=== PATIENT | female | born 1985 | race Caucasian/White ===

== ENCOUNTER 2018-09-08 13:06 | Emergency (ER) | payer OTHER, SELFPAY ==
[2018-09-08 13:21] VITALS: BP 124/97; PULSE 102; RESP 20; TEMP 36.6; O2SAT 100
--- NOTE | 2018-09-08 13:21 | ED.LOWEXIN ---
HPI - Extremity Injury (Lower) <JEET Fernando - Last Filed: 09/08/18 21:20> General Chief Complaint: Extremity Problem,Nontraumatic Stated Complaint: LT FOOT IS PURPLE Time Seen by Provider: 09/08/18 13:08 Source: patient Mode of arrival: ambulatory Limitations: no limitations History of Present Illness HPI Narrative: 33-year-old female with history of asthma is an everyday smoker here for complaint of having periodic episodes of purple to her left great toe. In January of this year she underwent procedure to her left lower extremity for superficial peroneal neuroma excision to relieve postoperative nerve pain from prior peroneal tendon repair. She reports she is at had any complications from the surgery. She presents with pictures of her toe being a purple. She does has some a sensation deficits to the left great toe after the surgery. She denies any trauma to the area. She denies any increased pain. She denies any other concerns or complaints at this time. She is ambulatory into the emergency room. Related Data Home Medications Medication Instructions Recorded Confirmed ibuprofen 600 mg PO Q6HP PRN #0 01/17/17 09/08/18 albuterol sulfate [ProAir HFA] 1 dose INHALATION PRN PRN 09/08/18 09/08/18 cyclobenzaprine 10 mg PO TID PRN 09/08/18 09/08/18 diclofenac sodium 1 applic TOPICAL DIRECTED 09/08/18 09/08/18 dicyclomine 20 mg PO QID PRN 09/08/18 09/08/18 gabapentin 600 mg PO QPM PRN 09/08/18 09/08/18 meloxicam 7.5 mg PO DAILY 09/08/18 09/08/18 norgestrel-ethinyl estradiol 1 tab PO DAILY 09/08/18 09/08/18 [Brendan (28)] omeprazole 20 mg PO BID 09/08/18 09/08/18 ondansetron 8 mg TRANSLINGUAL Q8H PRN 09/08/18 09/08/18 sucralfate 1 g PO QID 09/08/18 09/08/18 trazodone 50 mg PO QPM 09/08/18 09/08/18 Previous Rx's Medication Instructions Recorded pregabalin [Lyrica] 75 mg PO BID #60 cap 01/10/18 Allergies Allergy/AdvReac Type Severity Reaction Status Date / Time No Known Allergies Allergy Uncoded 12/21/17 13:08 Review of Systems <JEET Fernando - Last Filed: 09/08/18 21:20> Constitutional Denies chills, Denies fever(s), Denies lethargy and Denies weakness Eyes Denies change in vision, Denies eye discharge, Denies irritation and Denies loss of vision ENT Ears, Nose, Mouth, and Throat: Denies change in voice, Denies neck pain and Denies sore throat Cardiovascular Denies chest pain, Denies irregular heart rhythm, Denies lightheadedness, Denies palpitations, Denies dyspnea, Denies dyspnea on exertion and Denies orthopnea Respiratory Denies cough, Denies dyspnea, Denies dyspnea on exertion and Denies wheezing Gastrointestinal Gastrointestinal: Denies abdominal pain, Denies change in bowel habits, Denies diarrhea, Denies nausea and Denies vomiting Genitourinary Denies hematuria, Denies flank pain, Denies urinary incontinence and Denies urinary urgency Musculoskeletal Denies neck pain Comments: Left great toe intermittent purple color Integumentary/Breasts Denies pruritus, Denies erythema, Denies rash and Denies wounds Neurologic Denies confusion, Denies loss of vision and Denies weakness Psychiatric Denies anxiety, Denies confusion, Denies depression, Denies homicidal ideation and Denies suicidal ideation Endocrine Denies palpitations Hematologic/Lymphatic Denies easy bruising Allergic/Immunologic Denies wheezing Exam <JEET Fernando - Last Filed: 09/08/18 21:20> Initial Vital Signs Initial Vital Signs: Vital Signs Temperature 97.8 F 09/08/18 13:21 Pulse Rate 102 H 09/08/18 13:21 Respiratory Rate 20 09/08/18 13:21 Blood Pressure 124/97 H 09/08/18 13:21 Pulse Oximetry 100 09/08/18 13:21 Const General: cooperative and well developed Nutritional Appearance: well nourished Orientation: alert, awake, oriented x3 and not confused HENMT Mouth: oral mucosae normal and moist mucous membranes Eyes Conjunctivae: conjunctivae normal Sclera: sclerae normal Pupils: PERRL EOM: EOM intact bilaterally Resp Effort & Inspection: normal respiratory effort, able to speak in complete sentences, no respiratory distress and no use of accessory muscles Auscultation: clear to auscultation bilaterally, no rales, no rhonchi and no wheezes Cardio Rate: regular rate Rhythm: regular rhythm Heart Sounds: no click, no gallops, no murmurs and no rubs Pulses: normal peripheral pulses Skin General: no rashes or lesions noted, No jaundice and No petechiae Neuro General: alert, oriented x3, gait normal and no focal motor deficits Speech: speech normal Extrem Other: Left great toe with no swelling no signs of trauma. Left great toe pink in color with cap refill less than 2 sec. No signs of infection. Distal sensation is intact. There is some numbness to the medial aspect of the left great toe not new finding as this has been like this since her recent surgery. Positive range of motion. Dorsal pedis pulse intact. <Sherin Wilcox DO - Last Filed: 09/11/18 07:28> Initial Vital Signs Initial Vital Signs: Vital Signs Temperature 97.8 F 09/08/18 13:21 Pulse Rate 102 H 09/08/18 13:21 Respiratory Rate 20 09/08/18 13:21 Blood Pressure 124/97 H 09/08/18 13:21 Pulse Oximetry 100 09/08/18 13:21 Course <JEET Fernando - Last Filed: 09/08/18 21:20> Vital Signs - 8 hr 09/08/18 13:21 Temperature 97.8 F Pulse Rate 102 H Respiratory Rate 20 Blood Pressure 124/97 H Pulse Oximetry 100 <Sherin Wilcox DO - Last Filed: 09/11/18 07:28> Vital Signs - 8 hr 09/08/18 13:21 Temperature 97.8 F Pulse Rate 102 H Respiratory Rate 20 Blood Pressure 124/97 H Pulse Oximetry 100 MDM - Extremity Injury (Lower) <JEET Fernando - Last Filed: 09/08/18 21:20> [facility] Narrative Medical decision making narrative: No signs of discoloration or trauma or infection to the left great toe. Distal pulses are intact. Cap refill is intact. Will have patient try warming toe if continued symptoms. Will have her follow up with Orthopedics for further evaluation of continued problems. Follow up with primary care provider. Return emergency room for worsening symptoms. Discharge Plan Departure Patient Disposition: Home Clinical Impression: Discoloration of skin of toe Discharge Date/Time: 09/08/18 14:15 Interventions: ED Discharge Assessment Last Done: 09/08/18 14:16 Instructions: DI for Peripheral Neuropathy Activity Restrictions/Additional Instructions: Exam today was unremarkable showing a good circulation to the toes. Use warmth to the left great toe if discoloration happens to see if it helps symptoms. Follow up with Orthopedics for re-evaluation. If any worsening symptoms return to the emergency room. Follow up with primary care provider. Prescriptions: No Action ibuprofen 600 MG tablet 600 mg PO Q6HP PRN (Reason: Pain) Qty: 0 RF: 0 cyclobenzaprine 10 mg tablet 10 mg PO TID PRN (Reason: Spasms) RF: 0 norgestrel-ethinyl estradiol [Cryselle (28)] 0.3-30 mg-mcg tablet 1 tab PO DAILY RF: 0 trazodone 50 mg tablet 50 mg PO QPM RF: 0 sucralfate 1 gram tablet 1 g PO QID RF: 0 ondansetron 8 mg tablet,disintegrating 8 mg Translingual Q8H PRN (Reason: Nausea And Vomiting) RF: 0 meloxicam 7.5 mg tablet 7.5 mg PO DAILY RF: 0 dicyclomine 20 mg tablet 20 mg PO QID PRN (Reason: Spasms) RF: 0 gabapentin 300 mg capsule 600 mg PO QPM PRN (Reason: nerve pain) RF: 0 omeprazole 20 mg capsule,delayed release(DR/EC) 20 mg PO BID RF: 0 albuterol sulfate [ProAir HFA] 90 mcg/actuation HFA aerosol inhaler 1 dose Inhalation PRN PRN (Reason: Shortness Of Breath) RF: 0 diclofenac sodium 1 % gel 1 applic Topical DIRECTED RF: 0 pregabalin [Lyrica] 75 mg capsule 75 mg PO BID Qty: 60 RF: 1 Referrals: Norma Spencer MD [Physician] - Vira Laurent FNP-TONIO [Primary Care Provider] - <Sherin Wilcox DO - Last Filed: 09/11/18 07:28> [facility] ED Attending Selenaature Attestation: I was immediately available in the department for consultation. This documentation has been reviewed and I agree with assessment and plan. Supervised by Sherin Wilcox DO
--- NOTE | 2018-09-08 13:52 | PC.NURSE ---
Pt takes OCP for birthcontrol and smokes. Denies a prolonged travel recently.
== END 2018-09-08 14:15 | disposition home or self-care (01) ==
PROVIDERS: Emergency Provider Nurse Practitioner Family; PCP Nurse Practitioner Family
DX: L81.9 Disorder of pigmentation, unspecified (principal)
CPT/HCPCS: 99282

== ENCOUNTER → 2018-10-09 13:49 | Outpatient (CLI) | payer OTHER, SELFPAY ==
--- NOTE | 2018-10-09 | DI.US.S_ITS ---
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 COMPARISON: None. FINDINGS: Right lower extremity: Common femoral artery: 104 cm/sec, with triphasic flow. Deep femoral artery: 68 cm/sec, with triphasic flow. Proximal superficial femoral artery: 106 cm/sec, with triphasic flow. Mid superficial femoral artery: 82 cm/sec, with triphasic flow. Distal superficial femoral artery: 78 cm/sec, with triphasic flow. Popliteal artery: 47 cm/sec, with triphasic flow. Posterior tibial artery: 45 cm/sec, with triphasic flow. Anterior tibial artery/dorsalis pedis: 49 cm/sec, with triphasic flow. Smith-scale imaging description: No hemodynamically significant stenosis of the right lower extremity arteries. Left lower extremity: Common femoral artery: 138 cm/sec, with triphasic flow. Deep femoral artery: 54 cm/sec, with triphasic flow. Proximal superficial femoral artery: 87 cm/sec, with triphasic flow. Mid superficial femoral artery: 77 cm/sec, with triphasic flow. Distal superficial femoral artery: 83 cm/sec, with triphasic flow. Popliteal artery: 59 cm/sec, with triphasic flow. Posterior tibial artery: 43 cm/sec, with biphasic flow. Anterior tibial artery/dorsalis pedis: 58 cm/sec, with phasic flow. Smith-scale imaging description: No hemodynamically significant stenosis of the left lower extremity arteries. IMPRESSION: No hemodynamically significant stenosis of the bilateral lower extremity arteries. Dictated by: Yun York M.D. on 10/09/2018 at 15:57 Approved by: Yun York M.D. on 10/09/2018 at 16:01
== END ==
PROVIDERS: PCP Nurse Practitioner Family; Visit Provider Orthopaedic Surgery Foot and Ankle Surgery
DX: Q27.9 Congenital malformation of peripheral vascular system, unspecified (principal)
CPT/HCPCS: 93925

== ENCOUNTER 2019-02-20 13:07 | Emergency (ER) | payer OTHER, SELFPAY ==
[2019-02-20 13:08] VITALS: BP 148/103; PULSE 89; RESP 14; TEMP 36.7; O2SAT 100
--- NOTE | 2019-02-20 13:18 | DI.RAD.S_ITS ---
PROCEDURE: XR HIP W PEL IF DONE LT 2V INDICATIONS: pain sp glf TECHNIQUE: AP pelvis with lateral view(s) of the left hip(s). COMPARISON: None. FINDINGS: Bones: No fractures or dislocations. Pelvic ring appears intact. No suspicious bony lesions. Soft tissues: The visualized bowel gas pattern is normal. No suspicious soft tissue calcifications. IMPRESSION: Normal examination. Dictated by: Caleb Tamayo M.D. on 02/20/2019 at 13:47 Approved by: Caleb Tamayo M.D. on 02/20/2019 at 13:47
--- NOTE | 2019-02-20 13:18 | DI.RAD.S_ITS ---
PROCEDURE: XR SHOULDER LT MIN 2V INDICATIONS: pain sp glf TECHNIQUE: 3 views of the shoulder were acquired. COMPARISON: None. FINDINGS: Bones: No fractures or dislocations. No suspicious bony lesions. Visualized ribs appear intact. Soft tissues: No suspicious soft tissue calcifications. IMPRESSION: No fracture or dislocation. Dictated by: Ree Jain M.D. on 02/20/2019 at 13:51 Approved by: Ree Jain M.D. on 02/20/2019 at 13:51
--- NOTE | 2019-02-20 13:18 | DI.RAD.S_ITS ---
PROCEDURE: XR WRIST LT MIN 3V INDICATIONS: pain sp glf TECHNIQUE: 4 views of the wrist were acquired. COMPARISON: None. FINDINGS: Bones: No fractures or dislocations. No suspicious bony lesions. Scaphoid view: No trauma found. Soft tissues: No suspicious soft tissue calcifications. IMPRESSION: No trauma found. Dictated by: Caleb Tamayo M.D. on 02/20/2019 at 13:46 Approved by: Caleb Tamayo M.D. on 02/20/2019 at 13:47
--- NOTE | 2019-02-20 13:24 | ED_ITS ---
HPI - Fall <Sherin Mcintosh CARPET FINISHING SUPERVISOR-BC - Last Filed: 02/20/19 14:41> General Chief Complaint: Fall Stated Complaint: left shoulder/hip/knee/wrist injury today Time Seen by Provider: 02/20/19 13:10 Source: patient and family Mode of arrival: ambulatory Limitations: no limitations History of Present Illness HPI Narrative: The patient is a 34-year-old female with history of ankle surgery who is a current smoker who presents with a chief complaint of left wrist, left shoulder and left hip pain after a ground level fall this morning. She states she slipped in the shower. She is insistent that this is a mechanical fall. She did not hit her head and denies any neck or back pain. She denies any numbness or tingling. She complains of decreased range of motion of her left shoulder and wrist. She states that her left hip hurts when she walks. She states she landed on her left hip. Related Data Home Medications Medication Instructions Recorded Confirmed ibuprofen 600 mg PO Q6HP PRN #0 01/17/17 09/08/18 albuterol sulfate [ProAir HFA] 1 dose INHALATION PRN PRN 09/08/18 09/08/18 diclofenac sodium 1 applic TOPICAL DIRECTED 09/08/18 09/08/18 dicyclomine 20 mg PO QID PRN 09/08/18 09/08/18 gabapentin 600 mg PO QPM PRN 09/08/18 09/08/18 norgestrel-ethinyl estradiol 1 tab PO DAILY 09/08/18 09/08/18 [Brendan (28)] omeprazole 20 mg PO BID 09/08/18 09/08/18 ondansetron 8 mg TRANSLINGUAL Q8H PRN 09/08/18 09/08/18 sucralfate 1 g PO QID 09/08/18 09/08/18 trazodone 50 mg PO QPM 09/08/18 02/20/19 bupropion HCl 100 mg PO BID 02/20/19 meloxicam 15 mg PO DAILY 02/20/19 02/20/19 nifedipine 30 mg PO BID 02/20/19 02/20/19 Previous Rx's Medication Instructions Recorded pregabalin [Lyrica] 75 mg PO BID #60 cap 05/01/18 cyclobenzaprine 10 mg PO TID PRN #30 tab 02/20/19 Allergies Allergy/AdvReac Type Severity Reaction Status Date / Time No Known Drug Allergies Allergy Verified 02/20/19 13:16 Review of Systems <ROMEO Palencia - Last Filed: 02/20/19 14:41> Review of Systems GENERAL: Denies chills, fatigue, malaise, fever, sweats. HEENT: Denies sinus pain, ear pain, sore throat, difficulty swallowing, dizziness. RESPIRATORY: Denies dyspnea, cough, wheezing, hemoptysis, sputum. CARDIOVASCULAR: Denies chest pain, palpitations, orthopnea, edema, GASTROINTESTINAL: Denies nausea, vomiting, abdominal pain, diarrhea, c onstipation, melena. : Denies dysuria, frequency, incontinence, hematuria, urinary retention. MUSCULOSKELETAL: See HPI SKIN: See HPI NEUROLOGIC: Denies weakness, headache, numbness, change in speech, confusion, seizures, incoordination. PSYCHIATRIC: No concerning psychosocial issues. 12 point review of systems is negative except for those stated above Exam <ROMEO Palencia - Last Filed: 02/20/19 14:41> Narrative Exam Narrative: GENERAL: This is a well-nourished, well-developed patient, appears uncomfortable HEAD: Atraumatic. Normocephalic. No temporal or scalp tenderness. EYES: Pupils equal round and reactive. Extraocular motions intact. No scleral icterus. No injection or drainage. ENT: Nose without bleeding, purulent drainage or septal hematoma. Throat without erythema, tonsillar hypertrophy or exudate. Uvula midline. Airway patent. NECK: Trachea midline. No JVD or lymphadenopathy. Supple, nontender, no meningeal signs. CARDIOVASCULAR: Regular rate and rhythm without murmurs, gallops, or rubs. RESPIRATORY: Clear to auscultation. Breath sounds equal bilaterally. No wheezes, rales, or rhonchi. GASTROINTESTINAL: Abdomen soft, non-tender, nondistended. No hepato- splenomegaly, or palpable masses. No guarding. EXTREMITIES: General pain to palpation left wrist with no snuffbox tenderness. Able to flex and extend left wrist. Able to do thumbs up, thumbs down, make an okay sign pronate and supinate left wrist without incident. General pain to palpation left shoulder. Able to extend and flex the shoulder to 90?. Negative empty can test. Pain to palpation left hip. No instability palpated left hip. General pain to palpation left knee. Able to flex and extend left knee. BACK: Nontender without deformity or crepitance. No flank tenderness. No pain to C-spine or spinal palpation. NEURO: AOx3. Stable gait. SKIN: No rash or erythema. No erythema or ecchymosis noted on left hip, left shoulder or left wrist. Initial Vital Signs Initial Vital Signs: Vital Signs Temperature 98.1 F 02/20/19 13:08 Pulse Rate 89 02/20/19 13:08 Respiratory Rate 14 02/20/19 13:08 Blood Pressure 148/103 H 02/20/19 13:08 Pulse Oximetry 100 02/20/19 13:08 <Bryant Bailey DO - Last Filed: 02/20/19 19:29> Initial Vital Signs Initial Vital Signs: Vital Signs Temperature 98.1 F 02/20/19 13:08 Pulse Rate 89 02/20/19 13:08 Respiratory Rate 14 02/20/19 13:08 Blood Pressure 148/103 H 02/20/19 13:08 Pulse Oximetry 100 02/20/19 13:08 PFSH <HARSH Palencia - Last Filed: 02/20/19 14:41> Medical History Asthma (Acute) Hip bursitis, left (Acute) Left hip pain (Acute) Nerve damage (Acute) Neuropathic pain (Acute) Numbness (Acute) Smoker (Acute) Surgical History H/O arthroscopy of shoulder (Acute) History of incision and drainage (Acute) S/P tendon repair (Acute) Social History household members: spouse Smoking Status: Current every day smoker alcohol intake: current Social History household members: spouse Smoking Status: Current every day smoker alcohol intake: current Course <HARSH Palencia - Last Filed: 02/20/19 14:41> Orders Ordered: ED Orders 02/20/19 13:18 XR hip w pel if done LT 2V Stat XR shoulder LT min 2V Stat XR wrist LT min 3V Stat Discontinued Medications Cyclobenzaprine HCl (Flexeril) 10 mg PO NOW ONE Stop: 02/20/19 14:04 Last Admin: 02/20/19 14:14 Dose: 10 mg Vital Signs - 8 hr 02/20/19 13:08 02/20/19 14:46 Temperature 98.1 F Pulse Rate 89 75 Respiratory Rate 14 20 Blood Pressure 148/103 H 130/91 H Pulse Oximetry 100 98 <Bryant Bailey DO - Last Filed: 02/20/19 19:29> Orders Ordered: ED Orders 02/20/19 13:18 XR hip w pel if done LT 2V Stat XR shoulder LT min 2V Stat XR wrist LT min 3V Stat Discontinued Medications Cyclobenzaprine HCl (Flexeril) 10 mg PO NOW ONE Stop: 02/20/19 14:04 Last Admin: 02/20/19 14:14 Dose: 10 mg Vital Signs - 8 hr 02/20/19 13:08 02/20/19 14:46 Temperature 98.1 F Pulse Rate 89 75 Respiratory Rate 14 20 Blood Pressure 148/103 H 130/91 H Pulse Oximetry 100 98 MDM - Fall <HARSH Palencia - Last Filed: 02/20/19 14:41> Lab Data Point of Care Testing Test Results Negative Urine Dip Bedside Urine Glucose Negative Bedside Urine Bilirubin - Negative Bedside Urine Ketone - Negative Urine Specific [place] 1.025 Bedside Urine Occult Blood - Negative Bedside Urine pH 6.0 Bedside Urine Protein - Negative Bedside Urine Urobilinogen - Negative Bedside Urine Nitrite - Negative Bedside Urine Leukocytes - Negative Esterase Imaging Data Hip x-ray: Radiologist's impression: Connor Vieyraangelina Paul 34 F [address] [address] XRay Report Signed Patient: Maribell Vieyra [facility]#: [id number] : 1985Acct:[id number] Age/Sex: 34 / FDate of Service: 02/20/19 Loc: ED Accession Number: [id number] Procedure: XR hip w pel if done LT 2V Ordering Provider: Dayna,Sherin [employer]ISHING SUPERVISOR-BC PROCEDURE: XR HIP W PEL IF DONE LT 2V INDICATIONS: pain sp glf TECHNIQUE: AP pelvis with lateral view(s) of the left hip(s). COMPARISON: None. FINDINGS: Bones: No fractures or dislocations. Pelvic ring appears intact. No suspicious bony lesions. Soft tissues: The visualized bowel gas pattern is normal. No suspicious soft tissue calcifications. IMPRESSION: Normal examination. Dictated by: Caleb Tamayo M.D. on 02/20/2019 at 13:47 Approved by: Caleb Tamayo M.D. on 02/20/2019 at 13:47 Left shoulder x-ray: Radiologist's impression: Maribell Vieyra 34 F [address] [address] XRay Report Signed Patient: Maribell Vieyra [facility]R#: [id number] : 1985Acct:[id number] Age/Sex: 34 / FDate of Service: 02/20/19 Loc: ED Accession Number: [id number] Procedure: XR shoulder LT min 2V Ordering Provider: Sherin Mcintosh-BC PROCEDURE: XR SHOULDER LT MIN 2V INDICATIONS: pain sp glf TECHNIQUE: 3 views of the shoulder were acquired. COMPARISON: None. FINDINGS: Bones: No fractures or dislocations. No suspicious bony lesions. Visualized ribs appear intact. Soft tissues: No suspicious soft tissue calcifications. IMPRESSION: No fracture or dislocation. Dictated by: Ree Jain M.D. on 02/20/2019 at 13:51 Approved by: Ree Jain M.D. on 02/20/2019 at 13:51 Left wrist xray: Radiologist's impression: [address] [address] XRay Report Signed Patient: Maribell Vieyra [facility]#: [id number] : 1985Acct:[id number] Age/Sex: 34 / FDate of Service: 02/20/19 Loc: ED Accession Number: [id number] Procedure: XR wrist LT min 3V Ordering Provider: Sherin Mcintosh-TONIO PROCEDURE: XR WRIST LT MIN 3V INDICATIONS: pain sp glf TECHNIQUE: 4 views of the wrist were acquired. COMPARISON: None. FINDINGS: Bones: No fractures or dislocations. No suspicious bony lesions. Scaphoid view: No trauma found. Soft tissues: No suspicious soft tissue calcifications. IMPRESSION: No trauma found. Dictated by: Caleb Tamayo M.D. on 02/20/2019 at 13:46 Approved by: Caleb Tamayo M.D. on 02/20/2019 at 13:47 [facility] Narrative Medical decision making narrative: The patient is a 34-year-old female who presents with musculoskeletal pain after a ground level fall. She had negative x-rays for her hip, shoulder and wrist. She stated that the pain in her left knee was not bad enough to imaging today when she plans on playing up with her primary care provider in way. I discussed at length coming back to the emergency department for any acute concerns such as confusion, incontinence of bowel or bladder, saddle anesthesia. Encouraged follow-up with primary care provider. I did give her prescription of Flexeril for muscle spasm pain. No questions or concerns upon discharge. <Bryant Bailey DO - Last Filed: 02/20/19 19:29> Lab Data Point of Care Testing Test Results Negative Urine Dip Bedside Urine Glucose Negative Bedside Urine Bilirubin - Negative Bedside Urine Ketone - Negative Urine Specific [place] 1.025 Bedside Urine Occult Blood - Negative Bedside Urine pH 6.0 Bedside Urine Protein - Negative Bedside Urine Urobilinogen - Negative Bedside Urine Nitrite - Negative Bedside Urine Leukocytes - Negative Esterase Discharge Plan Departure Patient Disposition: Home Clinical Impression: Fall from ground level Acute shoulder pain Qualifiers: Laterality: left Qualified Code(s): M25.512 - Pain in left shoulder Acute wrist pain Qualifiers: Laterality: left Qualified Code(s): M25.532 - Pain in left wrist Acute hip pain Qualifiers: Laterality: left Qualified Code(s): M25.552 - Pain in left hip Discharge Date/Time: 02/20/19 14:46 Interventions: ED Discharge Assessment Last Done: 02/20/19 14:46 Instructions: How to Prevent Falls, DI for Shoulder Pain, DI for Wrist Pain, DI for Hip Pain Activity Restrictions/Additional Instructions: All of your x-rays came back with no fracture today. Please follow up with your primary care provider soon as possible. Please come back to emergency department for any acute concerns such as chest pain, shortness of breath confusion, new onset incontinence of bowel or bladder or numbness where you would sit on horse. I have given you a prescription of Flexeril. Please continue to take NSAIDs. Be aware the Flexeril can be sedating. Prescriptions: New cyclobenzaprine 10 mg tablet 10 mg PO TID PRN (Reason: muscle spasm) Qty: 30 RF: 0 No Action ibuprofen 600 MG tablet 600 mg PO Q6HP PRN (Reason: Pain) Qty: 0 RF: 0 norgestrel-ethinyl estradiol [Cryselle (28)] 0.3-30 mg-mcg tablet 1 tab PO DAILY RF: 0 trazodone 50 mg tablet 50 mg PO QPM RF: 0 sucralfate 1 gram tablet 1 g PO QID RF: 0 ondansetron 8 mg tablet,disintegrating 8 mg Translingual Q8H PRN (Reason: Nausea And Vomiting) RF: 0 dicyclomine 20 mg tablet 20 mg PO QID PRN (Reason: Spasms) RF: 0 gabapentin 300 mg capsule 600 mg PO QPM PRN (Reason: nerve pain) RF: 0 omeprazole 20 mg capsule,delayed release(DR/EC) 20 mg PO BID RF: 0 albuterol sulfate [ProAir HFA] 90 mcg/actuation HFA aerosol inhaler 1 dose Inhalation PRN PRN (Reason: Shortness Of Breath) RF: 0 diclofenac sodium 1 % gel 1 applic Topical DIRECTED RF: 0 pregabalin [Lyrica] 75 mg capsule 75 mg PO BID Qty: 60 RF: 1 meloxicam 15 mg tablet 15 mg PO DAILY RF: 0 nifedipine 30 mg tablet extended release 30 mg PO BID RF: 0 bupropion HCl 100 mg tablet sustained-release 12 hr 100 mg PO BID RF: 0 Referrals: Vira Laurent, CARPET FINISHING SUPERVISOR-BC [Primary Care Provider] - <Bryant Bailey DO - Last Filed: 02/20/19 19:29> [facility] [place] Attestation: I was immediately available in the department for consultation. Documentation has been reviewed. I agree with assessment and plan.
[2019-02-20] MEDS: CYCLOBENZAPRINE 10 MG TABLET PO (14:14)
[2019-02-20 14:46] VITALS: BP 130/91; PULSE 75; RESP 20; O2SAT 98
== END 2019-02-20 14:46 | disposition home or self-care (01) ==
PROVIDERS: Emergency Provider Nurse Practitioner Family; PCP Nurse Practitioner Family
DX: M25.512 Pain in left shoulder (principal); M25.532 Pain in left wrist; M25.552 Pain in left hip; W18.2XXA Fall in (into) shower or empty bathtub, initial encounter
CPT/HCPCS: 73030; 73110; 73502; 81003; 81025; 99282; 99283

== ENCOUNTER → 2019-04-13 17:15 | Outpatient (CLI) | payer OTHER, SELFPAY ==
--- NOTE | 2019-04-13 | DI.MRI.S_ITS ---
PROCEDURE: MR SHOULDER LT WO CON INDICATIONS: impingement syndrome of left shoulder TECHNIQUE: Noncontrast oblique coronal T2 fast spin echo with fat saturation, oblique sagittal T1 spin echo and T2 fast spin echo with fat saturation, axial T1 spin echo and T2 fast spin echo with fat saturation through the shoulder. COMPARISON: None. FINDINGS: Image quality: Excellent. Rotator cuff: Tendinosis and low-grade articular and bursal surface partial-thickness tear involving distal supraspinatus and infraspinatus near their insertion on the humeral head is seen extending to the musculotendinous junction. Distal subscapularis tendon is intact. Sagittal images demonstrate no significant muscle atrophy. Bones and bursae: No bone marrow contusions or fractures. Moderate acromioclavicular joint osteoarthritis is seen with downward osteophyte formation compressing the musculotendinous junction of supraspinatus. No pathologic subacromial-subdeltoid or subcoracoid bursal fluid is present. Capsule and soft tissues: In the absence of intra-articular contrast, the labrum and glenohumeral ligaments appear intact. The long head of the biceps tendon demonstrates normal location and morphology. The rotator interval appears normal, without fibrosis. The coracohumeral ligament is normal in thickness. IMPRESSION: 1. Tendinosis and low-grade articular and bursal surface partial-thickness tear involving distal supraspinatus and infraspinatus. No full-thickness rotator cuff tendon rupture. 2. Moderate acromioclavicular joint osteoarthritis. 3. No evidence of focal labral tear. Dictated by: Rhys Jhaveri M.D. on 04/16/2019 at 8:30 Approved by: Rhys Jhaveri M.D. on 04/16/2019 at 8:43
== END ==
PROVIDERS: PCP Nurse Practitioner Family; Visit Provider Orthopaedic Surgery
DX: M75.42 Impingement syndrome of left shoulder (principal); M75.112 Incomplete rotator cuff tear or rupture of left shoulder, not specified as traumatic; M19.012 Primary osteoarthritis, left shoulder
CPT/HCPCS: 73221

== ENCOUNTER → 2019-06-18 09:14 | Outpatient (CLI) | payer OTHER, SELFPAY ==
[2019-06-18 09:51] LABS: Add Manual Diff / Slide Review NO; Basophils Absolute Auto 100 /uL (0-100); Basophils Percent Auto 0.8 % (0-2); Eosinophils Absolute Auto 200 /uL (0-450); Hematocrit 41.4 % (36-46); Hemoglobin 13.9 g/dL (12.0-16.0); Lymphocytes Absolute Auto 2400 /uL (1100-4500); Lymphocytes Percent Auto 29.3 % (25-40); Mean Corpuscular HGB Conc 33.5 % (30-36); Mean Corpuscular Volume 89.5 fL (80-100); Monocytes Absolute Auto 900 /uL (0-900); Monocytes Percent Auto 10.3 % (3-14); Neutrophils Absolute Auto 4700 /uL (1500-7000); Neutrophils Percent Auto 56.6 % (50-75); Platelet Count 413 X10^3/uL (150-400); Red Blood Cell Count 4.62 X10^6/uL (4.0-5.2); White Blood Cell Count 8.3 X10^3/uL (4.5-11.0)
== END ==
PROVIDERS: PCP Nurse Practitioner Family; Visit Provider Internal Medicine Hematology & Oncology
DX: D47.3 Essential (hemorrhagic) thrombocythemia (principal)
CPT/HCPCS: 36415; 82310; 85025

== ENCOUNTER 2019-09-08 16:14 | Emergency (ER) | payer OTHER, SELFPAY ==
[2019-09-08 16:22] VITALS: BP 130/83; PULSE 122; RESP 18; TEMP 36.7; O2SAT 100
--- NOTE | 2019-09-08 16:27 | DI.RAD.S_ITS ---
PROCEDURE: XR ACUTE ABDOMEN SERIES INDICATIONS: abd pain TECHNIQUE: One view chest and two views of the abdomen were acquired. COMPARISON: None. FINDINGS: Surgical changes and devices: Cholecystectomy clips are present. Chest: Lungs are clear. Heart size is normal. No pleural effusions. No pneumoperitoneum. Abdomen: Bowel gas pattern is normal. No suspicious calcifications. Visualized solid organ contours appear normal. Bones: No suspicious bony lesions. IMPRESSION: No acute process. Dictated by: Tresa Boss M.D. on 09/08/2019 at 16:55 Approved by: Tresa Boss M.D. on 09/08/2019 at 16:56
--- NOTE | 2019-09-08 16:36 | PC.NURSE ---
reports, +diarrhea for couple of days, limited po intake, denies vomiting, with nausea only, denies fever. today with shortness of breath, heart racing , felt like passing out. treated with antibiotic last july for utis, denies traveling outside [place] on arrival anxious, skin moist/pale.
[2019-09-08 16:37] LABS: Add Manual Diff / Slide Review NO; Basophils Absolute Auto 100 /uL (0-100); Basophils Percent Auto 0.8 % (0-2); Eosinophils Absolute Auto 200 /uL (0-450); Eosinophils Percent Auto 1.8 % (2-4); Hematocrit 44.1 % (36-46); Hemoglobin 15.2 g/dL (12.0-16.0); Lymphocytes Absolute Auto 3000 /uL (1100-4500); Lymphocytes Percent Auto 28.7 % (25-40); Mean Corpuscular HGB Conc 34.6 % (30-36); Mean Corpuscular Hemoglobin 30.7 PG (26-34); Mean Corpuscular Volume 88.7 fL (80-100); Monocytes Absolute Auto 1000 /uL (0-900); Neutrophils Absolute Auto 6100 /uL (1500-7000); Neutrophils Percent Auto 58.7 % (50-75); Platelet Count 519 X10^3/uL (150-400); Red Blood Cell Count 4.97 X10^6/uL (4.0-5.2); Red Cell Distribution Width 12.8 % (11.6-14.8); White Blood Cell Count 10.4 X10^3/uL (4.5-11.0)
[2019-09-08] MEDS: SODIUM CHLORIDE 0.9% 1,000 ML 1000 ML IV ×2 (16:44→18:36)
[2019-09-08] MEDS: ONDANSETRON 4 MG/2 ML INJ IV ×2 (16:44→18:36)
[2019-09-08 16:45] LABS: INR 1.1 (0.9-1.3); Prothrombin Time 12.5 SECONDS (10.1-12.7)
[2019-09-08 16:47] LABS: PTT Partial Thromboplastin Tim 35 SECONDS (26.4-36.2)
[2019-09-08 16:49] LABS: Alanine Aminotransferase 41 IU/L (<35); Albumin 5.5 g/dL (3.5-5.0); Albumin Globulin Ratio 1.7 (1.0-2.8); Alkaline Phosphatase 101 U/L (38-126); Amylase 104 U/L (30-110); Aspartate Aminotransferase 33 IU/L (14-36); BUN Creatinine Ratio 15.5 (6-22); Bilirubin Total 0.4 mg/dL (0.2-1.3); Blood Urea Nitrogen 17 mg/dL (7-17); Calcium 10.7 mg/dL (8.4-10.2); Carbon Dioxide 22 mmol/L (22-32); Chloride 102 mmol/L (98-107); Estimated Glomerular Filt Rate 56.2 mL/min (>60); Globulin 3.2 g/dL (1.7-4.1); Glucose 92 mg/dL (70-100); HEMOLYSIS < 15 (0-50); Lipase 52 U/L (23-300); Magnesium 1.9 mg/dL (1.6-2.3); Sodium 140 mmol/L (137-145); Total Protein 8.7 g/dL (6.3-8.2)
[2019-09-08 17:08] LABS: Influenza A - CEPHEID Flu A NEGATIVE (NEGATIVE); Influenza B - CEPHEID Flu B NEGATIVE (NEGATIVE)
[2019-09-08 17:15] VITALS: BP 115/78; PULSE 92; RESP 19
--- NOTE | 2019-09-08 17:29 | DI.CT.S_ITS ---
PROCEDURE: CT ABDOMEN PELVIS W CON INDICATIONS: LLQ pain TECHNIQUE: After the administration of intravenous contrast, 5 mm thick sections acquired from the diaphragm to the symphysis. 5 mm coronal and sagittal reformats were acquired. For radiation dose reduction, the following was used: automated exposure control, adjustment of mA and/or kV according to patient size. COMPARISON: [facility], CR, XR ACUTE ABDOMEN SERIES, 09/08/2019, 16:35. FINDINGS: Image quality: Excellent. ABDOMEN: Lung bases: Lung bases are clear. Heart size is normal. Solid organs: Liver is normal in size and enhancement. Incidental note is made of focal fatty infiltration adjacent to the falciform ligament, which is not regarded to be pathologic. Gallbladder has been removed. Biliary system is non dilated. Pancreas enhances normally. Spleen is normal in size and enhancement. No adrenal nodules. Kidneys demonstrate normal size and enhancement, without hydronephrosis. Numerous nonobstructing bilateral renal stones are seen, which measure up to 3-4 mm on each side. Peritoneum and bowel: In this patient with this given history, scrutiny is given to sigmoid colon. No significant diverticula formation can be seen. No significant left lower quadrant inflammatory changes are seen. Bowel loops demonstrate normal wall thickness and caliber. No free fluid or air. There is a moderate to prominent amount of stool seen within the colon. Incidental note is made of a normal-appearing appendix. Nodes and vessels: No retroperitoneal or mesenteric adenopathy by size criteria. Aorta and inferior vena cava are normal in size. Miscellaneous: A mild periumbilical hernia is seen, containing fat. PELVIS: Genitourinary: Bladder wall thickness is normal. Cystic changes are seen of the ovaries, including a septated cyst on the right that measures up to 3.8 cm. Miscellaneous: No inguinal hernias or adenopathy. Bones: No suspicious bony lesions. No vertebral body compression fractures. IMPRESSION: Negative for diverticulitis. There is a moderate to prominent amount of stool seen within the colon. Please correlate with an underlying history of constipation. Cystic changes are seen of the ovaries, including a septated 3.8 cm cyst seen on the right. In a patient of this age, this is most likely to be related to benign, functional cyst. At clinical discretion, a followup pelvic ultrasound is suggested in 6 weeks to assure resolution/ improvement. Incidental note is made of: Cholecystectomy Nonobstructing kidney stones Focal fatty liver infiltration Fat-containing periumbilical hernia Normal appendix Dictated by: Parker Bailey M.D. on 09/08/2019 at 17:12 Approved by: Parker Bailey M.D. on 09/08/2019 at 17:15
[2019-09-08 17:45] VITALS: BP 128/88; PULSE 92; RESP 21; O2SAT 100
[2019-09-08 17:48] LABS: Pregnancy Test Serum,Qual Negative (Negative)
[2019-09-08 18:06] LABS: RBC Urine None Seen (0-5/HPF)
[2019-09-08 18:23] VITALS: BP 113/74; PULSE 74; RESP 17; O2SAT 98
[2019-09-08 18:28] LABS: Bacteria Urine Moderate (10-30); Culture Indicated Urine Cult Not Indicated; Squamous Epithelial Cell Urine 5-10 /HPF (0-5/HPF); WBC Urine 5-10/HPF (0-5/HPF)
[2019-09-08 18:30] VITALS: BP 119/77; PULSE 90; RESP 18; O2SAT 100
[2019-09-08] MEDS: METOCLOPRAMIDE 10 MG/2 ML INJ IV (19:35)
[2019-09-08 19:42] VITALS: BP 124/84; PULSE 90; RESP 20; O2SAT 100
[2019-09-08] MEDS: ONDANSETRON 4 MG ODT PREPACK 1 BOTTLE MISC (20:05)
--- NOTE | 2019-09-08 20:15 | ED.GENADULT ---
HPI - General Adult <HARSH Palencia - Last Filed: 09/08/19 20:25> General Chief complaint: Syncope Stated complaint: elevated HR, fatigue, faint Time Seen by Provider: 09/08/19 16:16 Source: patient Mode of arrival: Ambulatory Limitations: no limitations History of Present Illness HPI narrative: The patient is a 34-year-old female former smoker with history of complex regional pain syndrome who presents with a chief complaint of diarrhea, weakness, abdominal pain and elevated heart rate as per her Apple watch. She states her Apple watch stated that she was 135. She is concerned as her brother has a history of WPW. She states that she has had multiple diarrheal episodes a day, last episode yesterday when she had 5 episodes. She states this started around [place], when she ate leftover seafood. She denies any fevers. She complains of diffuse abdominal cramping, nausea no vomiting. She denies any shortness of breath chest pain. Related Data Home Medications Medication Instructions Recorded Confirmed ibuprofen 600 mg PO Q6HP PRN #0 01/17/17 06/18/19 albuterol sulfate [ProAir HFA] 1 dose INHALATION PRN PRN 09/08/18 06/18/19 diclofenac sodium 1 applic TOPICAL DIRECTED 09/08/18 06/18/19 trazodone 50 mg PO QPM 09/08/18 06/18/19 bupropion HCl 100 mg PO BID 02/20/19 06/18/19 meloxicam 15 mg PO DAILY 02/20/19 06/18/19 pregabalin [Lyrica] 75 mg PO TID 06/18/19 06/18/19 Previous Rx's Medication Instructions Recorded cyclobenzaprine 10 mg PO TID PRN #30 tab 02/20/19 metoclopramide HCl [Reglan] 10 mg PO Q6H PRN #14 tab 09/08/19 ondansetron 4 mg PO Q6H PRN #14 tab 09/08/19 Allergies Allergy/AdvReac Type Severity Reaction Status Date / Time No Known Drug Allergies Allergy Verified 02/20/19 13:16 Review of Systems <HARSH Palencia - Last Filed: 09/08/19 20:25> Review of Systems Narrative: GENERAL: Denies chills, fatigue, malaise, fever, sweats. HEENT: Denies sinus pain, ear pain, sore throat, difficulty swallowing, dizziness. RESPIRATORY: Denies dyspnea, cough, wheezing, hemoptysis, sputum. CARDIOVASCULAR: See HPI GASTROINTESTINAL: See HPI : Denies dysuria, frequency, incontinence, hematuria, urinary retention. MUSCULOSKELETAL: See HPI SKIN: Denies rash, skin lesions, or other NEUROLOGIC: Denies weakness, headache, numbness, change in speech, confusion, seizures, incoordination. PSYCHIATRIC: No concerning psychosocial issues. 12 point review of systems is negative except for those stated above Patient History <HARSH Palencia - Last Filed: 09/08/19 20:25> Medical History Asthma (Acute) Hip bursitis, left (Acute) Left hip pain (Acute) Nerve damage (Acute) Neuropathic pain (Acute) Numbness (Acute) Smoker (Acute) Surgical History H/O arthroscopy of shoulder (Acute) History of incision and drainage (Acute) S/P tendon repair (Acute) Family History Grandmother Stroke Grandfather Stroke Social History household members: spouse Smoking Status: Former smoker alcohol intake: never substance use type: does not use Smoking Status: Former smoker alcohol intake frequency: 0-2 drinks per day Substance Use Type: does not use Exam <HARSH Palencia - Last Filed: 09/08/19 20:25> Narrative Exam Narrative: GENERAL: This is a well-nourished, well-developed patient, appears uncomfortable HEAD: Atraumatic. Normocephalic. No temporal or scalp tenderness. EYES: Pupils equal round and reactive. Extraocular motions intact. No scleral icterus. No injection or drainage. ENT: Nose without bleeding, purulent drainage or septal hematoma. Throat without erythema, tonsillar hypertrophy or exudate. Uvula midline. Airway patent. NECK: Trachea midline. No JVD or lymphadenopathy. Supple, nontender, no meningeal signs. CARDIOVASCULAR: Regular rate and rhythm without murmurs, gallops, or rubs. RESPIRATORY: Clear to auscultation. Breath sounds equal bilaterally. No wheezes, rales, or rhonchi. No cough. No increased respiratory effort. No accessory muscle use. GASTROINTESTINAL: Abdomen soft, diffusely tender to palpation, tenderness to left lower quadrant palpation, nondistended. No hepato-splenomegaly, or palpable masses. No guarding. Active bowel sounds all 4 quadrants EXTREMITIES: No clubbing, cyanosis, or edema. No joint tenderness, effusion, or edema noted. BACK: Nontender without deformity or crepitance. No flank tenderness. NEURO: AOx3. SKIN: No rash or erythema on visible skin Initial Vital Signs Initial Vital Signs: Vital Signs Temperature 98.1 F 09/08/19 16:22 Pulse Rate 122 H 09/08/19 16:22 Respiratory Rate 18 09/08/19 16:22 Blood Pressure 130/83 09/08/19 16:22 Pulse Oximetry 100 09/08/19 16:22 <Musa Silva DO - Last Filed: 09/12/19 18:24> Initial Vital Signs Initial Vital Signs: Vital Signs Temperature 98.1 F 09/08/19 16:22 Pulse Rate 122 H 09/08/19 16:22 Respiratory Rate 18 09/08/19 16:22 Blood Pressure 130/83 09/08/19 16:22 Pulse Oximetry 100 09/08/19 16:22 Course <ROMEO PalenciaBC - Last Filed: 09/08/19 20:25> Course Course Narrative: I checked on the patient multiple times during her ER stay Orders Ordered: Discontinued Medications Sodium Chloride (Normal Saline 0.9%) 1,000 mls @ 1,000 mls/hr IV BOLUS ONE Stop: 09/08/19 17:38 Last Infusion: 09/08/19 17:44 Dose: 0 mls/hr Documented by: Admin: 09/08/19 16:44 Dose: 1,000 mls/hr Documented by: MEISENB Sodium Chloride (Normal Saline 0.9%) 1,000 mls @ 1,000 mls/hr IV BOLUS ONE Stop: 09/08/19 19:26 Last Infusion: 09/08/19 19:43 Dose: 0 mls/hr Documented by: Admin: 09/08/19 18:36 Dose: 1,000 mls/hr Documented by: MILAN Metoclopramide HCl (Reglan) 10 mg IV NOW ONE Stop: 09/08/19 19:34 Last Admin: 09/08/19 19:35 Dose: 10 mg Documented by: LAURE Ondansetron HCl (Zofran) 4 mg IV NOW ONE Stop: 09/08/19 16:40 Last Admin: 09/08/19 16:44 Dose: 4 mg Documented by: MILAN Ondansetron HCl (Zofran) 4 mg IV NOW ONE Stop: 09/08/19 18:28 Last Admin: 09/08/19 18:36 Dose: 4 mg Documented by: MILAN Ondansetron HCl (Zofran Odt Prepack) 1 bottle MISC SEEINSTR ONE Stop: 09/08/19 19:50 Last Admin: 09/08/19 20:05 Dose: 1 bottle Documented by: LAURE Vital Signs Vital signs: Vital Signs - 8 hr 09/08/19 16:22 09/08/19 17:15 09/08/19 17:45 Temperature 98.1 F Pulse Rate 122 H 92 H 92 H Respiratory Rate 18 19 21 Blood Pressure 130/83 Blood Pressure [Left Arm] 115/78 128/88 Pulse Oximetry 100 100 09/08/19 18:23 09/08/19 18:30 09/08/19 19:42 Temperature Pulse Rate 74 90 90 Respiratory Rate 17 18 20 Blood Pressure Blood Pressure [Left Arm] 113/74 119/77 124/84 Pulse Oximetry 98 100 100 <Musa Silva DO - Last Filed: 09/12/19 18:24> Orders Ordered: Discontinued Medications Sodium Chloride (Normal Saline 0.9%) 1,000 mls @ 1,000 mls/hr IV BOLUS ONE Stop: 09/08/19 17:38 Last Infusion: 09/08/19 17:44 Dose: 0 mls/hr Documented by: Admin: 09/08/19 16:44 Dose: 1,000 mls/hr Documented by: MILAN Sodium Chloride (Normal Saline 0.9%) 1,000 mls @ 1,000 mls/hr IV BOLUS ONE Stop: 09/08/19 19:26 Last Infusion: 09/08/19 19:43 Dose: 0 mls/hr Documented by: Admin: 09/08/19 18:36 Dose: 1,000 mls/hr Documented by: MILAN Metoclopramide HCl (Reglan) 10 mg IV NOW ONE Stop: 09/08/19 19:34 Last Admin: 09/08/19 19:35 Dose: 10 mg Documented by: LAURE Ondansetron HCl (Zofran) 4 mg IV NOW ONE Stop: 09/08/19 16:40 Last Admin: 09/08/19 16:44 Dose: 4 mg Documented by: MILAN Ondansetron HCl (Zofran) 4 mg IV NOW ONE Stop: 09/08/19 18:28 Last Admin: 09/08/19 18:36 Dose: 4 mg Documented by: MILAN Ondansetron HCl (Zofran Odt Prepack) 1 bottle MISC SEEINSTR ONE Stop: 09/08/19 19:50 Last Admin: 09/08/19 20:05 Dose: 1 bottle Documented by: LAURE Vital Signs Vital signs: Vital Signs - 8 hr 09/08/19 16:22 09/08/19 17:15 09/08/19 17:45 Temperature 98.1 F Pulse Rate 122 H 92 H 92 H Respiratory Rate 18 19 21 Blood Pressure 130/83 Blood Pressure [Left Arm] 115/78 128/88 Pulse Oximetry 100 100 09/08/19 18:23 09/08/19 18:30 09/08/19 19:42 Temperature Pulse Rate 74 90 90 Respiratory Rate 17 18 20 Blood Pressure Blood Pressure [Left Arm] 113/74 119/77 124/84 Pulse Oximetry 98 100 100 Medical Decision Making <HARSH Palencia - Last Filed: 09/08/19 20:25> Lab Data Result diagrams: 09/08/19 16:25 09/08/19 16:25 Labs: Lab Results 09/08/19 09/08/19 09/08/19 Range/Units 16:25 16:25 16:25 WBC 10.4 (4.5-11.0) X10^3/uL RBC 4.97 (4.0-5.2) X10^6/uL Hgb 15.2 (12.0-16.0) g/dL Hct 44.1 (36-46) % MCV 88.7 (80-100) fL MCH 30.7 (26-34) PG MCHC 34.6 (30-36) % RDW 12.8 (11.6-14.8) % Plt Count 519 H (150-400) X10^3/uL Neut % (Auto) 58.7 (50-75) % Lymph % (Auto) 28.7 (25-40) % Jerauld % (Auto) 10.0 (3-14) % Eos % (Auto) 1.8 L (2-4) % Baso % (Auto) 0.8 (0-2) % Neut # (Auto) 6100 (8403-1175) /uL Lymph # (Auto) 3000 (1034-4094) /uL Jerauld # (Auto) 1000 H (0-900) /uL Eos # (Auto) 200 (0-450) /uL Baso # (Auto) 100 (0-100) /uL PT 12.5 (10.1-12.7) SECONDS INR 1.1 (0.9-1.3) APTT 35 (26.4-36.2) SECONDS Sodium 140 (137-145) mmol/L Potassium 4.0 (3.4-5.1) mmol/L Chloride 102 (98-107) mmol/L Carbon Dioxide 22 (22-32) mmol/L BUN 17 (7-17) mg/dL Creatinine 1.10 H (0.52-1.04) mg/dL Estimated GFR 56.2 L (>60) mL/min BUN/Creatinine Ratio 15.5 (6-22) Glucose 92 (70-100) mg/dL Calcium 10.7 H (8.4-10.2) mg/dL Magnesium 1.9 (1.6-2.3) mg/dL Total Bilirubin 0.4 (0.2-1.3) mg/dL AST 33 (14-36) IU/L ALT 41 H (<35) IU/L Alkaline Phosphatase 101 (38-126) U/L Total Protein 8.7 H (6.3-8.2) g/dL Albumin 5.5 H (3.5-5.0) g/dL Globulin 3.2 (1.7-4.1) g/dL Albumin/Globulin Ratio 1.7 (1.0-2.8) Amylase 104 (30-110) U/L Lipase 52 (23-300) U/L Serum , Qual (Negative) Urine RBC (0-5/HPF) Urine WBC (0-5/HPF) Ur Squamous Epith Cells (0-5/HPF) Urine Bacteria (None) Ur Culture Indicated? Influenza A (RT-PCR) (NEGATIVE) Influenza B (RT-PCR) (NEGATIVE) 09/08/19 09/08/19 09/08/19 Range/Units 16:25 16:30 17:46 WBC (4.5-11.0) X10^3/uL RBC (4.0-5.2) X10^6/uL Hgb (12.0-16.0) g/dL Hct (36-46) % MCV (80-100) fL MCH (26-34) PG MCHC (30-36) % RDW (11.6-14.8) % Plt Count (150-400) X10^3/uL Neut % (Auto) (50-75) % Lymph % (Auto) (25-40) % Jerauld % (Auto) (3-14) % Eos % (Auto) (2-4) % Baso % (Auto) (0-2) % Neut # (Auto) (5612-0467) /uL Lymph # (Auto) (5655-5535) /uL Jerauld # (Auto) (0-900) /uL Eos # (Auto) (0-450) /uL Baso # (Auto) (0-100) /uL PT (10.1-12.7) SECONDS INR (0.9-1.3) APTT (26.4-36.2) SECONDS Sodium (137-145) mmol/L Potassium (3.4-5.1) mmol/L Chloride (98-107) mmol/L Carbon Dioxide (22-32) mmol/L BUN (7-17) mg/dL Creatinine (0.52-1.04) mg/dL Estimated GFR (>60) mL/min BUN/Creatinine Ratio (6-22) Glucose (70-100) mg/dL Calcium (8.4-10.2) mg/dL Magnesium (1.6-2.3) mg/dL Total Bilirubin (0.2-1.3) mg/dL AST (14-36) IU/L ALT (<35) IU/L Alkaline Phosphatase (38-126) U/L Total Protein (6.3-8.2) g/dL Albumin (3.5-5.0) g/dL Globulin (1.7-4.1) g/dL Albumin/Globulin Ratio (1.0-2.8) Amylase (30-110) U/L Lipase (23-300) U/L Serum , Qual Negative (Negative) Urine RBC None seen (0-5/HPF) Urine WBC 5-10/hpf H (0-5/HPF) Ur Squamous Epith Cells 5-10 /hpf H (0-5/HPF) Urine Bacteria Moderate (10-30) H (None) Ur Culture Indicated? Cult not indicated Influenza A (RT-PCR) Flu a negative (NEGATIVE) Influenza B (RT-PCR) Flu b negative (NEGATIVE) Point of Care Testing Test Results Negative Urine Dip Bedside Urine Glucose Negative Bedside Urine Bilirubin - Negative Bedside Urine Ketone ++ 40 Urine Specific Webster 1.015 Bedside Urine Occult Blood - Negative Bedside Urine pH 5.5 Bedside Urine Protein +/- 15 Bedside Urine Urobilinogen - Negative Bedside Urine Nitrite - Negative Bedside Urine Leukocytes + 70 Esterase Point of care testing: Point of Care Testing Test Results Negative Urine Dip Bedside Urine Glucose Negative Bedside Urine Bilirubin - Negative Bedside Urine Ketone ++ 40 Urine Specific Webster 1.015 Bedside Urine Occult Blood - Negative Bedside Urine pH 5.5 Bedside Urine Protein +/- 15 Bedside Urine Urobilinogen - Negative Bedside Urine Nitrite - Negative Bedside Urine Leukocytes + [address] scan - abdomen/pelvis: Radiologist's Impression: CT Scan Report Signed Patient: Maribell Vieyra [facility]#: [id number] : 1985Acct:[id number] Age/Sex: 34 / FDate of Service: 09/08/19 Loc: ED Accession Number: [id number] Procedure: CT abdomen pelvis w con Ordering Provider: Sherin Mcintosh PROCEDURE: CT ABDOMEN PELVIS W CON INDICATIONS: LLQ pain TECHNIQUE: After the administration of intravenous contrast, 5 mm thick sections acquired from the diaphragm to the symphysis. 5 mm coronal and sagittal reformats were acquired. For radiation dose reduction, the following was used: automated exposure control, adjustment of mA and/or kV according to patient size. COMPARISON: [facility], CR, XR ACUTE ABDOMEN SERIES, 09/08/2019, 16:35. FINDINGS: Image quality: Excellent. ABDOMEN: Lung bases: Lung bases are clear. Heart size is normal. Solid organs: Liver is normal in size and enhancement. Incidental note is made of focal fatty infiltration adjacent to the falciform ligament, which is not regarded to be pathologic. Gallbladder has been removed. Biliary system is non dilated. Pancreas enhances normally. Spleen is normal in size and enhancement. No adrenal nodules. Kidneys demonstrate normal size and enhancement, without hydronephrosis. Numerous nonobstructing bilateral renal stones are seen, which measure up to 3-4 mm on each side. Peritoneum and bowel: In this patient with this given history, scrutiny is given to sigmoid colon. No significant diverticula formation can be seen. No significant left lower quadrant inflammatory changes are seen. Bowel loops demonstrate normal wall thickness and caliber. No free fluid or air. There is a moderate to prominent amount of stool seen within the colon. Incidental note is made of a normal-appearing appendix. Nodes and vessels: No retroperitoneal or mesenteric adenopathy by size criteria. Aorta and inferior vena cava are normal in size. Miscellaneous: A mild periumbilical hernia is seen, containing fat. PELVIS: Genitourinary: Bladder wall thickness is normal. Cystic changes are seen of the ovaries, including a septated cyst on the right that measures up to 3.8 cm. Miscellaneous: No inguinal hernias or adenopathy. Bones: No suspicious bony lesions. No vertebral body compression fractures. IMPRESSION: Negative for diverticulitis. There is a moderate to prominent amount of stool seen within the colon. Please correlate with an underlying history of constipation. Cystic changes are seen of the ovaries, including a septated 3.8 cm cyst seen on the right. In a patient of this age, this is most likely to be related to benign, functional cyst. At clinical discretion, a followup pelvic ultrasound is suggested in 6 weeks to assure resolution/ improvement. Incidental note is made of: Cholecystectomy Nonobstructing kidney stones Focal fatty liver infiltration Fat-containing periumbilical hernia Normal appendix Dictated by: Parker Bailey M.D. on 09/08/2019 at 17:12 Approved by: Parker Bailey M.D. on 09/08/2019 at 17:15 Chest x-ray: Radiologist's Impression: Maribell Vieyra 34 F [address] [address] XRay Report Signed Patient: Maribell Vieyra [facility]#: [id number] : 1985Acct:[id number] Age/Sex: 34 / FDate of Service: 09/08/19 Loc: ED Accession Number: [id number] Procedure: XR acute abdomen series Ordering Provider: Sherin Mcintosh PROCEDURE: XR ACUTE ABDOMEN SERIES INDICATIONS: abd pain TECHNIQUE: One view chest and two views of the abdomen were acquired. COMPARISON: None. FINDINGS: Surgical changes and devices: Cholecystectomy clips are present. Chest: Lungs are clear. Heart size is normal. No pleural effusions. No pneumoperitoneum. Abdomen: Bowel gas pattern is normal. No suspicious calcifications. Visualized solid organ contours appear normal. Bones: No suspicious bony lesions. IMPRESSION: No acute process. Dictated by: Tresa Boss M.D. on 09/08/2019 at 16:55 Approved by: Tresa Boss M.D. on 09/08/2019 at 16:56 ECG Data Attestation: I personally reviewed and interpreted this ECG as follows: Interpretation: vent 104, pr 124, qrs [address] Shira LAMA Narrative Medical decision making narrative: The patient is a 34-year-old female who presents with a chief complaint of diarrhea, abdominal pain, fast heart rate. She states that her heart rate was in the 130s to 140s on her Apple watch, but she was in the 110s to 120s in the emergency department upon arrival. A quickly responded to IV fluid. She denies any chest pain. Her EKG is not concerning for WPW. Acute abdomen series shows no acute findings. Given her pain on left lower quadrant palpation, I did obtain a CT to rule out diverticulitis. This came back with no acute findings. She was given 2 L of IV fluid common only urinated once raising suspicion for dehydration. This is also supported by her elevated protein and albumin are labs, which also supports dehydration patient has a normal urinalysis. She was given Zofran and Reglan and felt much improved. She was unable to give a stool sample throughout her several hours stay in the emergency department. I discussed that this would help us rule out the etiology of the diarrhea, though I suspect might be due to the leftover old sea food. I discussed at length the importance of follow-up with primary care provider in the next few days. Encourage calling her PCP on Tuesday for follow-up. Discussed going back to ER for any acute concerns such as inability keep down fluids. Patient has no questions or concerns upon discharge and states understanding of return precautions as well as follow-up care. <Musa Shira, DO - Last Filed: 09/12/19 18:24> Lab Data Labs: Lab Results 09/08/19 09/08/19 09/08/19 Range/Units 16:25 16:25 16:25 WBC 10.4 (4.5-11.0) X10^3/uL RBC 4.97 (4.0-5.2) X10^6/uL Hgb 15.2 (12.0-16.0) g/dL Hct 44.1 (36-46) % MCV 88.7 (80-100) fL MCH 30.7 (26-34) PG MCHC 34.6 (30-36) % RDW 12.8 (11.6-14.8) % Plt Count 519 H (150-400) X10^3/uL Neut % (Auto) 58.7 (50-75) % Lymph % (Auto) 28.7 (25-40) % Jerauld % (Auto) 10.0 (3-14) % Eos % (Auto) 1.8 L (2-4) % Baso % (Auto) 0.8 (0-2) % Neut # (Auto) 6100 (6423-3256) /uL Lymph # (Auto) 3000 (5584-5083) /uL Jerauld # (Auto) 1000 H (0-900) /uL Eos # (Auto) 200 (0-450) /uL Baso # (Auto) 100 (0-100) /uL PT 12.5 (10.1-12.7) SECONDS INR 1.1 (0.9-1.3) APTT 35 (26.4-36.2) SECONDS Sodium 140 (137-145) mmol/L Potassium 4.0 (3.4-5.1) mmol/L Chloride 102 (98-107) mmol/L Carbon Dioxide 22 (22-32) mmol/L BUN 17 (7-17) mg/dL Creatinine 1.10 H (0.52-1.04) mg/dL Estimated GFR 56.2 L (>60) mL/min BUN/Creatinine Ratio 15.5 (6-22) Glucose 92 (70-100) mg/dL Calcium 10.7 H (8.4-10.2) mg/dL Magnesium 1.9 (1.6-2.3) mg/dL Total Bilirubin 0.4 (0.2-1.3) mg/dL AST 33 (14-36) IU/L ALT 41 H (<35) IU/L Alkaline Phosphatase 101 (38-126) U/L Total Protein 8.7 H (6.3-8.2) g/dL Albumin 5.5 H (3.5-5.0) g/dL Globulin 3.2 (1.7-4.1) g/dL Albumin/Globulin Ratio 1.7 (1.0-2.8) Amylase 104 (30-110) U/L Lipase 52 (23-300) U/L Serum , Qual (Negative) Urine RBC (0-5/HPF) Urine WBC (0-5/HPF) Ur Squamous Epith Cells (0-5/HPF) Urine Bacteria (None) Ur Culture Indicated? Influenza A (RT-PCR) (NEGATIVE) Influenza B (RT-PCR) (NEGATIVE) 09/08/19 09/08/19 09/08/19 Range/Units 16:25 16:30 17:46 WBC (4.5-11.0) X10^3/uL RBC (4.0-5.2) X10^6/uL Hgb (12.0-16.0) g/dL Hct (36-46) % MCV (80-100) fL MCH (26-34) PG MCHC (30-36) % RDW (11.6-14.8) % Plt Count (150-400) X10^3/uL Neut % (Auto) (50-75) % Lymph % (Auto) (25-40) % Jerauld % (Auto) (3-14) % Eos % (Auto) (2-4) % Baso % (Auto) (0-2) % Neut # (Auto) (4329-9473) /uL Lymph # (Auto) (5518-3258) /uL Jerauld # (Auto) (0-900) /uL Eos # (Auto) (0-450) /uL Baso # (Auto) (0-100) /uL PT (10.1-12.7) SECONDS INR (0.9-1.3) APTT (26.4-36.2) SECONDS Sodium (137-145) mmol/L Potassium (3.4-5.1) mmol/L Chloride (98-107) mmol/L Carbon Dioxide (22-32) mmol/L BUN (7-17) mg/dL Creatinine (0.52-1.04) mg/dL Estimated GFR (>60) mL/min BUN/Creatinine Ratio (6-22) Glucose (70-100) mg/dL Calcium (8.4-10.2) mg/dL Magnesium (1.6-2.3) mg/dL Total Bilirubin (0.2-1.3) mg/dL AST (14-36) IU/L ALT (<35) IU/L Alkaline Phosphatase (38-126) U/L Total Protein (6.3-8.2) g/dL Albumin (3.5-5.0) g/dL Globulin (1.7-4.1) g/dL Albumin/Globulin Ratio (1.0-2.8) Amylase (30-110) U/L Lipase (23-300) U/L Serum , Qual Negative (Negative) Urine RBC None seen (0-5/HPF) Urine WBC 5-10/hpf H (0-5/HPF) Ur Squamous Epith Cells 5-10 /hpf H (0-5/HPF) Urine Bacteria Moderate (10-30) H (None) Ur Culture Indicated? Cult not indicated Influenza A (RT-PCR) Flu a negative (NEGATIVE) Influenza B (RT-PCR) Flu b negative (NEGATIVE) Point of Care Testing Test Results Negative Urine Dip Bedside Urine Glucose Negative Bedside Urine Bilirubin - Negative Bedside Urine Ketone ++ 40 Urine Specific Webster 1.015 Bedside Urine Occult Blood - Negative Bedside Urine pH 5.5 Bedside Urine Protein +/- 15 Bedside Urine Urobilinogen - Negative Bedside Urine Nitrite - Negative Bedside Urine Leukocytes + 70 Esterase Point of care testing: Point of Care Testing Test Results Negative Urine Dip Bedside Urine Glucose Negative Bedside Urine Bilirubin - Negative Bedside Urine Ketone ++ 40 Urine Specific Webster 1.015 Bedside Urine Occult Blood - Negative Bedside Urine pH 5.5 Bedside Urine Protein +/- 15 Bedside Urine Urobilinogen - Negative Bedside Urine Nitrite - Negative Bedside Urine Leukocytes + 70 Esterase Discharge Plan Departure Patient Disposition: Home Clinical Impression: Dehydration, Abdominal pain in female, Thrombocythemia Discharge Date/Time: 09/08/19 20:19 Instructions: DI for Dehydration -- Adult, DI for Abdominal Pain-Adult, DI for Diarrhea and Traveler's Diarrhea -- Adult Activity Restrictions/Additional Instructions: Today your overall lab work, imaging etcetera shows dehydration I sent to antinausea medication prescriptions to [facility] in [place] Please push fluids. Please advance diet as tolerated. At this point I would avoid spicy, deep fried fatty alcohol etcetera Focus on fluids then easy to digest solids Please follow-up with primary care provider. As discussed the CT scan shows a right-sided ovarian cyst. Please follow up with primary care provider regarding this. Please come back to the emergency department for any acute concerns such as concern of heart attack, stroke, inability keep down fluids Prescriptions: New ondansetron 4 mg tablet,disintegrating 4 mg PO Q6H PRN (Reason: nausea and vomiting) Qty: 14 RF: 0 metoclopramide HCl [Reglan] 10 mg tablet 10 mg PO Q6H PRN (Reason: nausea and vomiting) Qty: 14 RF: 0 No Action ibuprofen 600 MG tablet 600 mg PO Q6HP PRN (Reason: Pain) Qty: 0 RF: 0 trazodone 50 mg tablet 50 mg PO QPM RF: 0 albuterol sulfate [ProAir HFA] 90 mcg/actuation HFA aerosol inhaler 1 dose Inhalation PRN PRN (Reason: Shortness Of Breath) RF: 0 diclofenac sodium 1 % gel 1 applic Topical DIRECTED RF: 0 meloxicam 15 mg tablet 15 mg PO DAILY RF: 0 bupropion HCl 100 mg tablet sustained-release 12 hr 100 mg PO BID RF: 0 cyclobenzaprine 10 mg tablet 10 mg PO TID PRN (Reason: muscle spasm) Qty: 30 RF: 0 pregabalin [Lyrica] 75 mg capsule 75 mg PO TID RF: 0 Referrals: Yolanda Jimenez ARNP [Primary Care Provider] - <Musa Silva DO - Last Filed: 09/12/19 18:24> Sign Out Provider Sign Out Attestation: Dr Silva Co-Sign Statement: I was available for consultation during this patient's emergency department visit. This chart is signed by myself for administrative purposes only. I did not have direct contact with this patient during this visit. They were seen independently by the APC.
== END 2019-09-08 20:19 | disposition home or self-care (01) ==
PROVIDERS: Emergency Provider Nurse Practitioner Family; PCP Nurse Practitioner Family
DX: R10.32 Left lower quadrant pain (principal); E86.0 Dehydration; D47.3 Essential (hemorrhagic) thrombocythemia; R00.0 Tachycardia, unspecified
CPT/HCPCS: 36415; 74022; 74177; 80053; 81003; 81015; 81025; 82150; 83690; 83735; 84703; 85025; 85610; 85730; 87502; 93005; 96361; 96374; 96375; 96376; 99284; 99285; J2405; J2765; Q9967

== ENCOUNTER → 2019-10-03 09:50 | Outpatient (CLI) | payer OTHER, SELFPAY ==
--- NOTE | 2019-10-03 09:53 | DI.RAD.S_ITS ---
PROCEDURE: XR FOOT LT MIN 3V INDICATIONS: left foot, complex regional pain syndrome TECHNIQUE: 3 views of the foot were acquired. COMPARISON: None. FINDINGS: Bones: No fractures or dislocations. No suspicious bony lesions. Soft tissues: No tibiotalar joint effusion. Achilles tendon appears normal. IMPRESSION: Normal for age, source of current persistent pain symptoms is not seen. Dictated by: Caleb Tamayo M.D. on 10/03/2019 at 14:34 Approved by: Caleb Tamayo M.D. on 10/03/2019 at 14:34
--- NOTE | 2019-10-03 09:53 | DI.NM.S_ITS ---
PROCEDURE: NM BONE 3 PHASE RADIOPHARMACEUTICAL: 19.6 mCi Tc-99m MDP IV. INDICATIONS: left foot CRPS TECHNIQUE: Multiple bone scintigrams were obtained after intravenous injection of Tc-99m MDP, including flow, blood pool, and delayed images centered to the region of interest. COMPARISON: [facility], CR, XR FOOT LT MIN 3V, 10/03/2019, 9:57. FINDINGS: There is abnormal asymmetric blood flow and blood pool imaging greater on the right than the left, in this patient with with left-sided symptomatology and suspicion for presence of complex regional pain syndrome (reflex sympathetic dystrophy). There also is asymmetric right-sided predominant asymmetric bone scan agent deposition on delayed bone scan imaging. IMPRESSION: The asymmetry in blood flow, blood pool, and delayed bone scan isotope deposition (right greater than left) in this patient with left-sided complex regional pain syndrome is likely due to asymmetric left-sided vasospasm. Plain film imaging shows no identifiable left foot osseous abnormality, images obtained same day. Dictated by: Caleb Tamayo M.D. on 10/03/2019 at 15:31 Approved by: Caleb Tamayo M.D. on 10/03/2019 at 15:54
== END ==
PROVIDERS: PCP Nurse Practitioner Family; Visit Provider Physical Medicine & Rehabilitation
DX: M79.672 Pain in left foot (principal); G90.529 Complex regional pain syndrome I of unspecified lower limb; I99.9 Unspecified disorder of circulatory system
CPT/HCPCS: 73630; 78315; A9503

== ENCOUNTER → 2019-12-14 10:35 | Outpatient (CLI) | payer OTHER, SELFPAY ==
--- NOTE | 2019-12-14 | DI.MRI.S_ITS ---
PROCEDURE: MR LUMBAR SPINE WO CON INDICATIONS: Low back pain TECHNIQUE: Noncontrast sagittal T1 spin echo and T2 fast echo, sagittal STIR, axial T1 and T2 fast spin echo through the lumbar spine. In cases with scoliosis, additional coronal T2 fast spin echo may be performed. COMPARISON: None. FINDINGS: Image quality: Excellent. Alignment and Curvature: There is normal bony alignment. Bone Marrow: Multilevel degenerative endplate sclerosis and spurring. Diffuse facet arthropathy. No acute vertebral body compression fractures. Spinal Cord: Conus medullaris terminates at the L1-L2 level. Visualized cord demonstrates normal signal and size. Paraspinous Soft Tissues: There is nonspecific, dependent posterior subcutaneous soft tissue edema from level of L2-L5. There is prominent epidural lipomatosis at the level of L5-S1 with associated canal narrowing L1-L2: Normal appearance. L2-L3: Normal appearance. L3-L4: Normal appearance. L4-L5: Normal appearance. L5-S1: Moderate to severe canal narrowing related to prominent epidural lipomatosis. Mild bilateral foraminal narrowing with borderline nerve root compression. IMPRESSION: Moderate to severe canal narrowing at L5-S1 however this is due to surrounding fat signal intensity from epidural lipomatosis Mild bilateral L5-S1 foraminal stenosis Dictated by: Derick Whittaker M.D. on 12/14/2019 at 12:34 Approved by: Derick Whittaker M.D. on 12/14/2019 at 12:41
--- NOTE | 2019-12-14 | DI.MRI.S_ITS ---
PROCEDURE: MR THORACIC SPINE WO CON INDICATIONS: Low back pain TECHNIQUE: Noncontrast sagittal T1 spine echo and T2 fast spin echo, sagittal STIR, axial T1 and T2 fast spin echo through the thoracic spine. COMPARISON: None. FINDINGS: Image quality: Excellent. Alignment and Curvature: There is normal bony alignment. Bone Marrow: Marrow is of normal overall signal. No acute vertebral body compression fractures. Spinal Cord: Visualized spinal cord is normal in size and signal. Paraspinous Soft Tissues: No paravertebral masses. Miscellaneous: Slight loss of signal noted in the T9-T10 disc. Loss of signal is also noted in the T6-T7 disc and central, posterior C6-C7 disc annulus tear is noted. No central stenosis. No neural foraminal narrowing. No neural compression. IMPRESSION: 1. No central stenosis. 2. No neural foraminal narrowing. 3. No neural compression. 4. Mild C6-C7 and T9-T10 degenerative disc disease. 5. C6-C7 disc annulus tear. Dictated by: Tiffanie Son MD, PhD on 12/14/2019 at 11:49 Approved by: Tiffanie Son MD, PhD on 12/14/2019 at 12:01
== END ==
PROVIDERS: PCP Nurse Practitioner Family; Referring Provider Physical Medicine & Rehabilitation; Visit Provider Physical Medicine & Rehabilitation
DX: M54.5 Low back pain (principal); M48.07 Spinal stenosis, lumbosacral region; M50.323 Other cervical disc degeneration at C6-C7 level; M51.34 Other intervertebral disc degeneration, thoracic region; E88.2 Lipomatosis, not elsewhere classified
CPT/HCPCS: 72146; 72148; A9579

== ENCOUNTER → 2020-02-01 16:13 | Outpatient (CLI) | payer OTHER, SELFPAY ==
[2020-02-01 16:34] LABS: Hemoglobin 14.6 g/dL (12.0-16.0); Mean Corpuscular HGB Conc 34.7 % (30-36); Mean Corpuscular Hemoglobin 31.1 PG (26-34); Mean Corpuscular Volume 89.4 fL (80-100); Platelet Count 492 X10^3/uL (150-400); Red Blood Cell Count 4.69 X10^6/uL (4.0-5.2); Red Cell Distribution Width 12.9 % (11.6-14.8); White Blood Cell Count 10.3 X10^3/uL (4.5-11.0)
[2020-02-01 16:58] LABS: Neutrophils Absolute Manual 6901 /uL (3000-5900); RBC Morphology Normal Morphology; Total Cells Counted 100
[2020-02-01 17:18] LABS: Alanine Aminotransferase 25 IU/L (<35); Albumin 5.1 g/dL (3.5-5.0); Albumin Globulin Ratio 1.5 (1.0-2.8); Alkaline Phosphatase 106 U/L (38-126); Aspartate Aminotransferase 28 IU/L (14-36); Bilirubin Total 0.4 mg/dL (0.2-1.3); Blood Urea Nitrogen 16 mg/dL (7-17); Calcium 10.4 mg/dL (8.4-10.2); Carbon Dioxide 24 mmol/L (22-32); Chloride 103 mmol/L (98-107); Estimated Glomerular Filt Rate > 60.0 mL/min (>60); Globulin 3.5 g/dL (1.7-4.1); Glucose 91 mg/dL (70-100); HEMOLYSIS 17 (0-50); Potassium 4.1 mmol/L (3.4-5.1); Sodium 139 mmol/L (137-145); Total Protein 8.6 g/dL (6.3-8.2)
== END ==
PROVIDERS: PCP Nurse Practitioner Family; Referring Provider Internal Medicine Hematology & Oncology; Visit Provider Internal Medicine Hematology & Oncology
DX: D47.3 Essential (hemorrhagic) thrombocythemia (principal)
CPT/HCPCS: 36415; 80053; 81219; 81402; 85025

== ENCOUNTER → 2020-12-16 07:05 | Outpatient (CLI) | payer OTHER, SELFPAY ==
--- NOTE | 2020-12-16 07:08 | DI.US.S_ITS ---
PROCEDURE: US ABDOMEN COMPLETE INDICATIONS: THROMBOCYTOSIS TECHNIQUE: Real-time scanning was performed of the abdominal and retroperitoneal organs, with image documentation. COMPARISON: [facility], CT, CT ABDOMEN PELVIS W CON, 09/08/2019, 17:33. FINDINGS: Liver: Liver is normal in size and homogeneous in echotexture, diffusely hyperechoic consistent with hepatic steatosis. Gallbladder: Has been surgically resected Biliary ducts: Intrahepatic bile ducts are non-dilated. Extrahepatic bile duct caliber measures 5.3 mm. Normal is 6-7 mm or less in diameter, or 10 mm or less post-cholecystectomy. Pancreas: Visualized portions of the pancreas are sonographically normal. Spleen: Spleen is normal in size and homogeneous in echotexture. Kidneys: Kidneys are normal in size and echotexture. Right kidney measures 10.3 cm long; left kidney measures 10.2 cm long. No hydronephrosis or nephrolithiasis. No solid masses. Bilateral nonobstructive urinary tract stones are present, measuring up to 5 mm on the right at the mid kidney anteriorly and 9 mm on the left at the mid kidney anteriorly. Aorta: Visualized aorta is normal in caliber at less than 3 cm. Iliacs: Proximal common iliac arteries are normal in caliber at less than 2.5 cm. IVC: Intrahepatic inferior vena cava is patent. Miscellaneous: No free abdominal fluid. IMPRESSION: Relatively prominent fatty infiltration throughout the liver, hepatic steatosis. Prior cholecystectomy. Nonobstructive bilateral renal collecting system calculi are identified, 5 mm on the right and 9 mm on the left. Calculi with this appearance were not present on prior CT scanning from 09/08/19. Dictated by: Caleb Tamayo M.D. on 12/16/2020 at 11:12 Approved by: Caleb Tamayo M.D. on 12/16/2020 at 11:18
== END ==
PROVIDERS: PCP Internal Medicine; Referring Provider Internal Medicine Hematology & Oncology; Visit Provider Internal Medicine Hematology & Oncology
DX: D47.3 Essential (hemorrhagic) thrombocythemia (principal); N20.0 Calculus of kidney
CPT/HCPCS: 76700